=== PATIENT | female | born 1960 | race Caucasian/White ===

== ENCOUNTER → 2020-12-03 | Outpatient (CLI) | payer OTHER ==
--- NOTE | 2020-12-06 09:06 | Diagnostic Imaging Report ---
EXAMINATION: Mammogram bilateral screening with CAD. INDICATION: Screening. COMPARISON: There are no prior studies for comparison at this time. PERSONAL HISTORY: There are no current complaints. FINDINGS: The breasts are predominantly fatty. There is no primary or secondary sign of malignancy noted. IMPRESSION: 1. There is no evidence for malignancy. 2. The patient should have her annual bilateral screening mammogram on schedule in November 2021. ACR BI-RADS Category 1: Negative. Result letter will be mailed to the patient. Note: At least 10% of breast cancer is not imaged by mammography. Dictated by: Dictated on workstation # [id number]
== END ==
LOC: RAD 14:24
PROVIDERS: ATTEND Family Medicine
DX: Z12.31 Encounter for screening mammogram for malignant neoplasm of breast (principal)
CPT/HCPCS: 77063; 77067